=== PATIENT | male | born 1995 | race African-American/Black ===

== ENCOUNTER 2019-07-20 14:31 | Emergency (ER) | payer SELFPAY ==
[~2019-07-20] VITALS: Ht 180.3 cm; Wt 83.0 kg
[2019-07-20 14:34] VITALS: BP 147/79
[2019-07-20] MEDS ORDERED: IBUPROFEN 600 MG TABLET PO ONE (15:00)
[2019-07-20] MEDS ORDERED: IBUPROFEN 200 MG TABLET ONE (15:18)
--- NOTE | 2019-07-20 15:22 | NUR ---
medicated per emar for throat pain rated at 8/10
== END 2019-07-20 15:45 | disposition home or self-care (01) ==
LOC: ED 15:39
DX: J02.8 Acute pharyngitis due to other specified organisms (principal); B97.89 Other viral agents as the cause of diseases classified elsewhere
CPT/HCPCS: 87081; 87880; 99283

== ENCOUNTER 2019-07-21 14:57 | Emergency (ER) | payer OTHER ==
[~2019-07-21] VITALS: Ht 182.9 cm; Wt 82.0 kg
[2019-07-21 15:19] VITALS: BP 151/81
[2019-07-21] MEDS ORDERED: DEXAMETHASONE 4 MG TABLET PO ONE (15:30)
--- NOTE | 2019-07-21 15:56 | NUR ---
TASK RN, FIRST CONTACT WITH PT. Provided medication per EMAR. NADN. No other needs expressed. Pt apprecaitive.
--- NOTE | 2019-07-21 16:12 | NUR ---
Patient given discharge instructions and they have confirmed that they understand the instructions. Patient ambulatory with steady gait. Pt left with d/c paperwork, Rx, and all personal belongings.
== END 2019-07-21 16:17 | disposition home or self-care (01) ==
LOC: ED 15:38
DX: J02.9 Acute pharyngitis, unspecified (principal)
CPT/HCPCS: 99282; J3490; 99283